=== PATIENT | male | born 1940 | race Caucasian/White ===

== ENCOUNTER 2018-08-17 19:07 | Emergency (ER) | payer OTHER, SELFPAY ==
--- NOTE | 2018-08-17 19:13 | ED.GENADULT ---
HPI - General Adult General Chief complaint: Extremity Injury, Upper Stated complaint: LT INDEX FINGER CUT Time Seen by Provider: 08/17/18 19:13 Source: patient Mode of arrival: ambulatory Limitations: no limitations History of Present Illness HPI narrative: Patient is a 77-year-old male. On Coumadin for atrial fibrillation and having a pacemaker. Sustained an injury to his left index finger prior to arrival. He hit with a an Axe. He does not know when his last tetanus shot was. He did put a hemostatic bandage on it that he had at home and still had quite a bit of oozing. Came into the emergency department for evaluation. Related Data Allergies Allergy/AdvReac Type Severity Reaction Status Date / Time No Known Drug Allergies Allergy Verified 08/17/18 19:18 Review of Systems Constitutional Denies fever(s) Cardiovascular Denies chest pain and Denies dyspnea Respiratory Denies dyspnea Gastrointestinal Gastrointestinal: Denies abdominal pain, Denies nausea and Denies vomiting Musculoskeletal Comments: Pain to left index finger Integumentary/Breasts Comments: Cut to left index finger Neurologic Comments: No tingling left index finger Hematologic/Lymphatic Comments: On Coumadin [facility] Medical History Atrial fibrillation (Acute) Surgical History History of permanent cardiac pacemaker placement (Acute) Social History marital status: lives independently: Yes Exam Initial Vital Signs Initial Vital Signs: Vital Signs Temperature 97.5 F L 08/17/18 19:18 Pulse Rate 78 08/17/18 19:18 Respiratory Rate 16 08/17/18 19:18 Blood Pressure 166/99 H 08/17/18 19:18 Pulse Oximetry 97 08/17/18 19:18 Const General: cooperative, well developed, well groomed and No acute distress Orientation: alert, awake and oriented x3 Cardio Pulses: radial pulses present on the left Skin Other: Patient with an area of skin avulsion on the radial aspect of the left index finger just distal to the MCP joint. There is also a ?V? shaped incision just distal to this. Neuro Other: Sensation tach to light touch left index finger Extrem Other: Left hand unremarkable. Full range of motion of the MCP and PIP joint to the left index finger. The avulsion injury does not extend into the joint space. Procedures Laceration Repair Laceration 1: Site: hand Side (If applicable): left Size (cm): 2 Description: irregular Depth: simple, single layer Local Anesthetic: lidocaine 1% Amount of anesthesia used (mL): 3 Pre-repair: wound explored, irrigated extensively and deep structures intact Skin layer closed with: nylon Size (cm): 4-0 Number of sutures: 6 Technique: simple, interrupted Course Orders Ordered: ED Orders 08/17/18 19:23 XR hand LT min 3V Stat Discontinued Medications Diphtheria/Tetanus/Acell Pertussis (Adacel) 0.5 ml IM .ONCE ONE Stop: 08/17/18 19:21 Last Admin: 08/17/18 19:25 Dose: 0.5 ml Vital Signs - 8 hr 08/17/18 19:18 08/17/18 19:55 Temperature 97.5 F L Pulse Rate 78 64 Respiratory Rate 16 16 Blood Pressure 166/99 H 159/80 H Pulse Oximetry 97 96 Medical Decision Making Imaging Data X-ray Hand: Radiologist's impression: [address] [address] XRay Report Signed Patient: RENEE HURD GMR#: [id number] : [id number]:[id number] Age/Sex: 77 / MDate of Service: 08/17/18 Loc: ED Accession Number: [id number] Procedure: XR hand LT min 3V Ordering Provider: Martinez Mohamud D.O. PROCEDURE: XR HAND LT MIN 3V INDICATIONS: Hit index finger with Axe with laceration TECHNIQUE: 3 views of the left hand acquired. COMPARISON: None. FINDINGS: Bones: No fractures or dislocations. There is narrowing of the interphalangeal joints including moderate narrowing of the 2nd, 3rd, and 5th distal interphalangeal joints with particular osteophytosis and subchondral sclerosis. There is also mild to moderate narrowing of the 2nd metacarpal phalangeal joint with subchondral sclerosis and mild osteophytosis. Carpal bones are normally aligned. No suspicious bony lesions. Soft tissues: There is a soft tissue laceration along the radial aspect of the 2nd digit. No suspicious soft tissue calcifications. IMPRESSION: 1. No fracture or dislocation. 2. Soft tissue laceration at the base of the 2nd digit without radiopaque foreign bodies. 3. 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 Dictated by: Cuba Cramer M.D. on 08/17/2018 at 20:30 Approved by: Cuba Cramer M.D. on 08/17/2018 at 20:32 MDM Narrative Medical decision making narrative: Patient's tetanus was updated. The x-ray shows no acute fracture. The avulsion injury was unable to be repaired here in the ER. It was covered with a surgeon foam dressing to control bleeding. The v shaped incision was closed as described above. Dressing was placed. Patient was given return precautions and follow-up instructions. He expressed understanding and agreement plan. Discharge Plan Departure Patient Disposition: Home Clinical Impression: Avulsion of skin Finger laceration Qualifiers: Encounter type: initial encounter Finger: index finger Damage to nail status: without damage Foreign body presence: without foreign body Laterality: left Qualified Code(s): S61.211A - Laceration without foreign body of left index finger without damage to nail, initial encounter Discharge Date/Time: 08/17/18 19:56 Interventions: ED Discharge Assessment Last Done: 08/17/18 19:55 Instructions: DI for Laceration Repair Activity Restrictions/Additional Instructions: The stitches do need to be removed in the next 7-10 days. Keep the bandage on for the next 24 hours and then replace it again like we discussed. After that you can wash her hands like normal. Contact your primary provider for a follow-up. Return to the emergency department for any new or worsening symptoms.
[2018-08-17 19:18] VITALS: BP 166/99; PULSE 78; RESP 16; TEMP 36.4; O2SAT 97; BMI 23.7
--- NOTE | 2018-08-17 19:23 | DI.RAD.S_ITS ---
PROCEDURE: XR HAND LT MIN 3V INDICATIONS: Hit index finger with Axe with laceration TECHNIQUE: 3 views of the left hand acquired. COMPARISON: None. FINDINGS: Bones: No fractures or dislocations. There is narrowing of the interphalangeal joints including moderate narrowing of the 2nd, 3rd, and 5th distal interphalangeal joints with particular osteophytosis and subchondral sclerosis. There is also mild to moderate narrowing of the 2nd metacarpal phalangeal joint with subchondral sclerosis and mild osteophytosis. Carpal bones are normally aligned. No suspicious bony lesions. Soft tissues: There is a soft tissue laceration along the radial aspect of the 2nd digit. No suspicious soft tissue calcifications. IMPRESSION: 1. No fracture or dislocation. 2. Soft tissue laceration at the base of the 2nd digit without radiopaque foreign bodies. 3. 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 Dictated by: Cuba Cramer M.D. on 08/17/2018 at 20:30 Approved by: Cuba Cramer M.D. on 08/17/2018 at 20:32
[2018-08-17] MEDS: TET,DIPH,PERTUSS(ACELL),VAC/PF 0.5 ML SYRINGE IM (19:25)
--- NOTE | 2018-08-17 19:27 | PC.NURSE ---
florencio. PT has laceration from chopping wood with axe to left index finger with bleeding controlled with hemostatic bandage prior to arrival, pt on Coumadin. Reports he needs updated tetanus shot.
[2018-08-17 19:55] VITALS: BP 159/80; PULSE 64; RESP 16; O2SAT 96
== END 2018-08-17 19:56 | disposition home or self-care (01) ==
PROVIDERS: Emergency Provider Emergency Medicine
DX: S61.211A Laceration without foreign body of left index finger without damage to nail, initial encounter (principal); W27.0XXA Contact with workbench tool, initial encounter; Z79.01 Long term (current) use of anticoagulants; Z23 Encounter for immunization
CPT/HCPCS: 12001; 73130; 90471; 99282; 99283; 90715